=== PATIENT | female | born 1970 | race African-American/Black ===

== ENCOUNTER 2017-06-30 21:18 | Emergency (ER) | payer OTHER ==
[~2017-06-30] VITALS: Ht 165.1 cm; Wt 79.8 kg
[2017-06-30 21:40] VITALS: BP 132/76
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
== END 2017-06-30 21:54 | disposition home or self-care (01) ==
LOC: ER 21:18
DX: Z71.1 Person with feared health complaint in whom no diagnosis is made (principal)
CPT/HCPCS: 99283

== ENCOUNTER 2017-11-16 17:13 | Emergency (ER) | payer OTHER ==
[2017-11-16 18:08] LABS: URINE HCG POC HCG POSITIVE (Negative)
[2017-11-16 18:34] LABS: BILIRUBIN,URINE SMALL (NEG); CLARITY,URINE CLEAR; COLOR,URINE YELLOW; GLUCOSE,URINE NEGATIVE (NEG); NITRITE,URINE NEGATIVE (NEG); PROTEIN,URINE NEGATIVE (NEG-TRACE)
[2017-11-16] MEDS: IV NORMAL SALINE 1000ML BAG 1,000 ML IV ×2 (18:37)
[2017-11-16] MEDS: ONDANSETRON PF 4 MG/2 ML VIAL. IV ×2 (18:38)
[2017-11-16] MEDS: HYOSCYAMINE 0.125 MG TAB.RAPDIS PO ×2 (18:40)
[2017-11-16 18:48] LABS: ADD MAN DIFF? NO
[2017-11-16 18:50] LABS: BASO # 0.1 x10^3/uL (0.0-0.2); BASO % 1 % (0-3); EOS # 0.1 x10^3/uL (0.0-0.7); EOS % 1 % (0-3); HEMATOCRIT 40.1 % (36.0-47.0); HEMOGLOBIN 13.5 g/dL (12.0-15.5); LYMPH # 2.3 x10^3/uL (1.0-4.8); LYMPH % 25 % (24-48); MEAN CORPUSCULAR HEMOGLOBIN 29 pg (25-35); MEAN CORPUSCULAR HGB CONC 34 g/dL (31-37); MEAN CORPUSCULAR VOLUME 85 fL (79-100); MONO # 0.5 x10^3/uL (0.0-1.1); MONO % 5 % (0-9); NEUT # 6.3 x10^3uL (1.8-7.7); NEUT % 68 % (31-73); PLATELET COUNT 316 x10^3/uL (140-400); RED BLOOD COUNT 4.72 x10^6/uL (3.50-5.40); RED CELL DISTRIBUTION WIDTH 14.2 % (11.5-14.5); WHITE BLOOD COUNT 9.2 x10^3/uL (4.0-11.0)
[2017-11-16 18:53] LABS: BACTERIA,URINE MODERATE /HPF (0-FEW); RBC,URINE OCC /HPF (0-2); SQUAMOUS EPITHELIAL CELL,UR MANY /LPF; YEAST,URINE PRESENT /HPF
[2017-11-16 18:58] LABS: ANION GAP 10 (6-14); BLOOD UREA NITROGEN 11 mg/dL (7-20); BUN/CREATININE RATIO 10 (6-20); CALCIUM 8.7 mg/dL (8.5-10.1); CARBON DIOXIDE 25 mmol/L (21-32); CHLORIDE 104 mmol/L (98-107); CREATININE 1.1 mg/dL (0.6-1.0); GLUCOSE 85 mg/dL (70-99); POTASSIUM 3.7 mmol/L (3.5-5.1); SODIUM 139 mmol/L (136-145)
[2017-11-16 19:04] LABS: ALBUMIN/GLOBULIN RATIO 0.9 (1.0-1.7); ALK PHOS 66 U/L (46-116); ALT (SGPT) 10 U/L (14-59); AST (SGOT) 12 U/L (15-37); LIPASE 179 U/L (73-393); TOTAL BILIRUBIN 0.2 mg/dL (0.2-1.0); TOTAL PROTEIN 8.3 g/dL (6.4-8.2)
[2017-11-16] MEDS: FLUCONAZOLE 100 MG TABLET. PO ×2 (19:58)
== END 2017-11-16 20:50 | disposition home or self-care (01) ==
LOC: ER 17:13
DX: O26.891 Other specified pregnancy related conditions, first trimester (principal); R10.84 Generalized abdominal pain; R11.0 Nausea; B37.49 Other urogenital candidiasis
CPT/HCPCS: 36415; 76801; 76817; 80053; 81001; 81025; 83690; 83735; 84702; 85025; 87086; 96361; 96374; 99285-25; J2405; J7030

== ENCOUNTER 2017-11-17 20:57 | Emergency (ER) | payer OTHER ==
[2017-11-17] MEDS: predniSONE 20 MG TABLET PO ×2 (21:28)
[2017-11-17] MEDS: diphenhydrAMINE HCL 25 MG CAPSULE PO ×2 (21:28)
== END 2017-11-17 22:45 | disposition home or self-care (01) ==
LOC: ER 22:45
DX: T78.40XA Allergy, unspecified, initial encounter (principal)
CPT/HCPCS: 99283; J7512; Q0163

== ENCOUNTER 2017-12-20 09:42 | Emergency (ER) | payer OTHER ==
[2017-12-20 11:38] LABS: ADD MAN DIFF? NO
[2017-12-20 11:41] LABS: BASO % 1 % (0-3); EOS # 0.1 x10^3/uL (0.0-0.7); EOS % 4 % (0-3); HEMATOCRIT 36.5 % (36.0-47.0); HEMOGLOBIN 11.9 g/dL (12.0-15.5); LYMPH % 39 % (24-48); MEAN CORPUSCULAR HEMOGLOBIN 28 pg (25-35); MEAN CORPUSCULAR HGB CONC 33 g/dL (31-37); MEAN CORPUSCULAR VOLUME 85 fL (79-100); MONO # 0.5 x10^3/uL (0.0-1.1); MONO % 18 % (0-9); NEUT % 38 % (31-73); PLATELET COUNT 220 x10^3/uL (140-400); RED BLOOD COUNT 4.31 x10^6/uL (3.50-5.40); RED CELL DISTRIBUTION WIDTH 14.2 % (11.5-14.5); WHITE BLOOD COUNT 2.6 x10^3/uL (4.0-11.0)
[2017-12-20 11:51] LABS: ANION GAP 11 (6-14); BLOOD UREA NITROGEN 12 mg/dL (7-20); CALCIUM 9.1 mg/dL (8.5-10.1); CARBON DIOXIDE 24 mmol/L (21-32); CHLORIDE 106 mmol/L (98-107); GFR 72.5; GLUCOSE 90 mg/dL (70-99); POTASSIUM 3.7 mmol/L (3.5-5.1); SODIUM 141 mmol/L (136-145)
[2017-12-20 12:00] LABS: NEG OBC SER NEG; POS OBC SER POS
[2017-12-20 12:01] LABS: INFLUENZA A PATIENT NEGATIVE (NEGATIVE); INFLUENZA B PATIENT POSITIVE (NEGATIVE)
[2017-12-20 12:02] LABS: OBC FLU VALID
[2017-12-20 12:04] LABS: PREG TEST PT QUAL POSITIVE (NEG)
== END 2017-12-20 13:25 | disposition home or self-care (01) ==
LOC: ER 09:42
DX: J10.1 Influenza due to other identified influenza virus with other respiratory manifestations (principal); Z33.1 Pregnant state, incidental (principal)
CPT/HCPCS: 36415; 71046; 80048; 84702; 84703; 85025; 87804; 87804-59; 93005; 99285-25

== ENCOUNTER 2018-01-21 15:26 | Emergency (ER) | payer OTHER | END 2018-01-21 16:04 | disposition home or self-care (01) | LOC: ER 15:26 | DX: T78.40XA Allergy, unspecified, initial encounter (principal) | CPT/HCPCS: 99283 ==

== ENCOUNTER 2018-12-17 10:51 | Emergency (ER) | payer OTHER ==
[~2018-12-17] VITALS: Ht 167.6 cm; Wt 81.6 kg
[~2018-12-17 10:51] MED LIST: GUAI-40 PO; ONDA4TAB10 PO; OSEL75CA PO; PRED20TA PO
[2018-12-17 11:05] VITALS: BP 136/77
[2018-12-17 11:42] LABS: BILIRUBIN,URINE NEGATIVE (NEG); CLARITY,URINE CLEAR; COLOR,URINE YELLOW; NITRITE,URINE NEGATIVE (NEG); PROTEIN,URINE NEGATIVE (NEG-TRACE); UROBILINOGEN,URINE 0.2 mg/dL (0.2 mg/dL)
[2018-12-17 12:01] LABS: BACTERIA,URINE MODERATE /HPF (0-FEW); RBC,URINE OCC /HPF (0-2); SQUAMOUS EPITHELIAL CELL,UR MOD /LPF
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
[2018-12-17] MEDS ORDERED: CYCL5TAB PO (13:13)
[2018-12-17] MEDS ORDERED: NITR100C62 PO (13:13)
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
== END 2018-12-17 13:34 | disposition home or self-care (01) ==
LOC: ER 10:51
DX: S16.1XXA Strain of muscle, fascia and tendon at neck level, initial encounter (principal); N39.0 Urinary tract infection, site not specified; M47.812 Spondylosis without myelopathy or radiculopathy, cervical region; V49.9XXA Car occupant (driver) (passenger) injured in unspecified traffic accident, initial encounter; Y93.89 Activity, other specified; Y92.488 Other paved roadways as the place of occurrence of the external cause; Y99.8 Other external cause status
CPT/HCPCS: 72125; 74176; 81001; 81025; 87086; 99284-25

== ENCOUNTER 2021-11-03 13:56 | Emergency (ER) | payer OTHER ==
[~2021-11-03] VITALS: Ht 165.1 cm; Wt 77.2 kg
[~2021-11-03 13:56] MED LIST changes: +CYCL5TAB PO; +NITR100C62 PO
[2021-11-03] MEDS ORDERED: TETRACAINE 0.5% OPHTH SOLUTION 4ML BOTTLE. OS ONE (15:15)
[2021-11-03] MEDS ORDERED: FLUORESCEIN OPHTH TEST STRIP. OS ONE (15:15)
[2021-11-03 16:30] VITALS: BP 132/62
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
[2021-11-03] MEDS ORDERED: ERYT1OIN3 LEFTEYE (17:46)
== END 2021-11-03 17:57 | disposition home or self-care (01) ==
LOC: ER 13:56
DX: T15.92XA Foreign body on external eye, part unspecified, left eye, initial encounter (principal); X58.XXXA Exposure to other specified factors, initial encounter; Y93.89 Activity, other specified; Y92.89 Other specified places as the place of occurrence of the external cause; Y99.8 Other external cause status
CPT/HCPCS: 99283